=== PATIENT | female | born 1960 | race Caucasian/White ===

== ENCOUNTER 2019-02-07 22:24 | Observation (INO) | payer OTHER, SELFPAY ==
[2019-02-07] VITALS (9 sets, daily range): BP systolic 109–154; BP diastolic 57–79; PULSE 72–88; RESP 14–20; TEMP 36.8; O2SAT 93–100; BMI 34.4
--- NOTE | 2019-02-07 22:28 | ED.LOWEXIN ---
HPI - Extremity Injury (Lower) General Chief Complaint: Extremity Injury, Lower Stated Complaint: severe dislocate/broke lt ankle-sprained rt ankle Time Seen by Provider: 02/07/19 22:27 Source: patient and family Mode of arrival: ambulatory Limitations: no limitations History of Present Illness HPI Narrative: 58-year-old female nonsmoker with benign medical history presents with her in the chief complaint of a left ankle injury suffered earlier today. The patient was walking down some steps and lost her balance and fell, obviously severely injuring her left ankle. She has significant pain with ambulation and some improvement with rest. She denies any numbness or tingling. She does have a little bit of pain in her right ankle as well. She denies head neck or back pain. She denies any prodromal were contributing symptoms to the fall. She does not take blood thinners. She was seen and evaluated by the paramedics whom wrap her ankle in a pillow and suggested she come see us. She is visiting from [place] where she lives MD complaint: ankle injury Type of Injury: unknown Place: street/outdoors Severity: moderate Relieving factors: immobilization Exacerbating factors: weight bearing, movement and palpation Context: fall Associated symptoms: snap/pop sensation, swelling and unable to bear weight Other symptoms: none Related Data Home Medications Medication Instructions Recorded Confirmed No Known Home Medications 02/07/19 02/08/19 Allergies Allergy/AdvReac Type Severity Reaction Status Date / Time morphine Allergy Verified 02/07/19 22:33 Review of Systems Constitutional Constitutional: Denies chills, Denies fatigue, Denies fever(s), Denies frequent falls, Denies lethargy and Denies weakness Eyes Eyes: Denies change in vision, Denies eye discharge, Denies irritation and Denies loss of vision ENT Ears, Nose, Mouth, and Throat: Denies change in voice, Denies dizziness, Denies neck pain, Denies sore throat and Denies throat swelling Cardiovascular Cardiovascular: Denies chest pain, Denies irregular heart rhythm, Denies lightheadedness, Denies palpitations, Denies dyspnea, Denies dyspnea on exertion and Denies orthopnea Respiratory Respiratory: Denies cough, Denies dyspnea, Denies dyspnea on exertion and Denies wheezing Gastrointestinal Gastrointestinal: Denies abdominal pain, Denies change in bowel habits, Denies diarrhea, Denies nausea and Denies vomiting Genitourinary Genitourinary: Denies hematuria, Denies flank pain, Denies urinary incontinence and Denies urinary urgency Musculoskeletal Musculoskeletal: Denies back pain, Reports joint swelling, Reports limited range of motion, Denies muscle weakness, Denies neck pain, Denies numbness and Denies tingling Integumentary/Breasts Skin/Breast: Denies pruritus, Denies erythema, Denies rash and Denies wounds Neurologic Neurologic: Denies behavioral changes, Denies confusion, Denies dizziness, Denies frequent falls, Denies loss of vision, Denies numbness, Denies tingling and Denies weakness Psychiatric Psychiatric: Denies anxiety, Denies behavioral changes, Denies confusion, Denies depression, Denies homicidal ideation and Denies suicidal ideation Endocrine Endocrine: Denies fatigue, Denies flushing and Denies palpitations Hematologic/Lymphatic Hematologic/Lymphatic: Denies easy bruising Allergic/Immunologic Allergic/Immunologic: Denies urticaria, Denies throat swelling and Denies wheezing [facility] Social History household members: spouse Smoking Status: Never smoker alcohol intake: never Social History household members: spouse Smoking Status: Never smoker alcohol intake: never Exam Narrative Exam Narrative: GENERAL: [58] year old patient appears stated age. Well-nourished, well-developed patient, in mild distress. HEAD: Atraumatic. Normocephalic. EYES: Pupils equal round and reactive. Extraocular motions intact. No scleral icterus. No injection or drainage. ENT: Nose without bleeding, purulent drainage. Throat without erythema, tonsillar hypertrophy or exudate. Airway patent. NECK: Trachea midline. Non tender CARDIOVASCULAR: Regular rate and rhythm without murmurs, gallops, or rubs. RESPIRATORY: Clear to auscultation. Breath sounds equal bilaterally. No wheezes, rales, or rhonchi. GASTROINTESTINAL: Abdomen soft, non-tender, nondistended. EXTREMITIES: Obvious swelling and deformity of the left ankle, difficulty in palpating dorsalis pedis but easily seen on bedside ultrasound with color Doppler. Sensation intact. Patient has full painless range of motion of the knee. Patient has some pain to palpation of the lateral malleolus on the right ankle. These injuries are closed and neurovascularly intact. BACK: Nontender without deformity or crepitance. No flank tenderness. NEURO: AOx3. SKIN: No rash or erythema of visible areas Initial Vital Signs Initial Vital Signs: Vital Signs Temperature 98.2 F 02/07/19 22:37 Pulse Rate 88 02/07/19 22:37 Respiratory Rate 20 02/07/19 22:37 Blood Pressure 154/69 H 02/07/19 22:37 Pulse Oximetry 100 02/07/19 22:37 Procedures Orthopedic Fracture Reduction Fracture #1: Time Out Performed: Yes Side: left Fracture Reduction Location: tibia Analgesia: procedural sedation Technique: direct manipulation Post Reduction X-rays Demonstrate: anatomical reduction Post-reduction neuro exam: intact Post-reduction vascular exam: intact Splint Applied: Yes Patient Tolerated Procedure: Well Orthopedic Splinting/Casting Injury #1: Side: left Lower Extremity Injury Location: ankle Lower Extremity Immobilizer: posterior splint and stirrup splint Post splinting neuro exam: intact Post splinting vascular exam: intact Placed by: Provider Procedural Sedation Patient Age: Patient is 5yrs or older Consent signed: Yes Time out performed: Yes Indication: fracture/dislocation reduction ASA Class: I Mallampati Airway Classification: Class II Preparation: raw stock machine loader applied, pulse oximeter, capnometry used, supplemental O2 applied, suction/airway equipment at bedside and IV secured IV Propofol dose (mg): 100 ED Sedation Level: Moderate (Concious) Patient Tolerated Procedure: Well Complications: none Course Orders Ordered: ED Orders 02/07/19 23:17 XR ankle LT 2V Stat 02/07/19 23:55 CT LE LT wo con Stat Hydromorphone HCl (Dilaudid) 0.5 mg IV Q2H PRN PRN Reason: Pain, Severe (7-10) Last Admin: 02/08/19 06:39 Dose: 0.5 mg Documented by: Admin: 02/08/19 04:38 Dose: 0.5 mg Documented by: Admin: 02/08/19 02:32 Dose: 0.5 mg Documented by: YESSY Hydroxyzine Pamoate (Vistaril) 25 mg PO Q6HR PRN PRN Reason: Nausea Last Admin: 02/08/19 03:32 Dose: 25 mg Documented by: YESSY Sodium Chloride (Normal Saline 0.9%) 1,000 mls @ 125 mls/hr IV CONT GILDA Last Admin: 02/08/19 02:31 Dose: 125 mls/hr Documented by: YESSY Ondansetron HCl (Zofran) 4 mg IV Q4HR PRN PRN Reason: Nausea And Vomiting Sodium Chloride (Normal Saline 0.9% Flush) 10 ml IV PRN PRN PRN Reason: Flush Last Admin: 02/08/19 06:39 Dose: 10 ml Documented by: Admin: 02/08/19 04:39 Dose: 10 ml Documented by: YESSY Discontinued Medications Sodium Chloride (Normal Saline 0.9%) 1,000 mls @ 1,000 mls/hr IV BOLUS ONE Stop: 02/08/19 00:59 Last Infusion: 02/08/19 00:20 Dose: 0 mls/hr Documented by: Admin: 02/08/19 00:02 Dose: 1,000 mls/hr Documented by: LC Ketorolac Tromethamine (Toradol) 15 mg IV NOW ONE Stop: 02/08/19 03:19 Last Admin: 02/08/19 03:29 Dose: 15 mg Documented by: YESSY Propofol (Diprivan) 200 mg IV NOW ONE Stop: 02/07/19 23:20 Last Admin: 02/07/19 23:43 Dose: 100 mg Documented by: DELFINO Consultations Consultation #1: Discussed with on-call orthopedics whom are happy with postreduction films and will admit patient and take to the operating room tomorrow morning Vital Signs Vital signs: Vital Signs - 8 hr 02/08/19 00:17 02/08/19 01:00 Temperature 97.7 F Pulse Rate 81 71 Respiratory Rate 17 16 Blood Pressure 136/82 133/76 Pulse Oximetry 96 98 MDM - Extremity Injury (Lower) Lab Data Result diagrams: 02/07/19 23:05 02/07/19 23:05 Labs: Lab Results 02/07/19 02/07/19 Range/Units 23:05 23:05 WBC 14.9 H (4.5-11.0) X10^3/uL RBC 4.37 (4.0-5.2) X10^6/uL Hgb 13.0 (12.0-16.0) g/dL Hct 38.4 (36-46) % MCV 87.7 (80-100) fL MCH 29.6 (26-34) PG MCHC 33.8 (30-36) % RDW 12.9 (11.6-14.8) % Plt Count 194 (150-400) X10^3/uL Neut % (Auto) 78.1 H (50-75) % Lymph % (Auto) 11.5 L (25-40) % [place] % (Auto) 6.1 (3-14) % Eos % (Auto) 3.0 (2-4) % Baso % (Auto) 1.3 (0-2) % Neut # (Auto) 02833 H (3371-3031) /uL Lymph # (Auto) 1700 (4232-4638) /uL [place] # (Auto) 900 (0-900) /uL Eos # (Auto) 400 (0-450) /uL Baso # (Auto) 200 H (0-100) /uL Sodium 140 (137-145) mmol/L Potassium 3.8 (3.4-5.1) mmol/L Chloride 106 (98-107) mmol/L Carbon Dioxide 24 (22-32) mmol/L BUN 20 H (7-17) mg/dL Creatinine 0.60 (0.52-1.04) mg/dL Estimated GFR > 60.0 (>60) mL/min BUN/Creatinine Ratio 33.3 H (6-22) Glucose 108 H (70-100) mg/dL Calcium 9.5 (8.4-10.2) mg/dL Point of Care Testing Test Results Not applicable Imaging Data Ankle x-ray: My impression: Left ankle notes fracture dislocation Discharge Plan Departure Patient Disposition: Admitted As Inpatient Clinical Impression: Bimalleolar ankle fracture Qualifiers: Encounter type: initial encounter Fracture type: closed Laterality: left Qualified Code(s): S82.842A - Displaced bimalleolar fracture of left lower leg, initial encounter for closed fracture Discharge Date/Time: 02/08/19 01:00 Admit Date/Time: 02/08/19 01:48 Admit Provider: Orly Luciano
--- NOTE | 2019-02-07 22:30 | DI.RAD.S_ITS ---
PROCEDURE: XR ANKLE LT MIN 3V INDICATIONS: pain, swelling TECHNIQUE: 3 views of the ankle were acquired. COMPARISON: [facility], CT, CT LE LT WO CON, 02/08/2019, 0:43. [facility], CR, XR ANKLE LT 2V, 02/07/2019, 23:23. FINDINGS: Bones: There is a comminuted fracture identified involving the distal left fibular shaft with mild lateral displacement of the distal fracture fragment. A vertically oriented fracture along the posterior margin of the distal tibial metaphysis involves the articular surface compatible with a posterior malleolar fracture. There is superior displacement of the fracture fragment and the adjacent articular surface by 5 mm. Anterior widening of the tibiotalar joint space and the medial clear space is present. There is borderline widening of the distal tibiofibular syndesmosis. No suspicious osseous lesions or dislocations are evident. Soft tissues: There is a prominent tibiotalar joint effusion. Prominent soft tissue swelling about the ankle is present. IMPRESSION: 1. Comminuted distal fibular shaft fracture. 2. Posterior malleolus fracture. 3. Probable disruption of the syndesmosis. 4. Widening of the medial clear space suggests a deltoid ligament injury. 5. Ankle effusion. Dictated by: Catalino Conley M.D. on 02/08/2019 at 7:11 Approved by: Catalino Conley M.D. on 02/08/2019 at 7:14
--- NOTE | 2019-02-07 22:30 | DI.RAD.S_ITS ---
PROCEDURE: XR KNEE LT 1TO2V INDICATIONS: pain after fall TECHNIQUE: 2 views of the knee were acquired. COMPARISON: None. FINDINGS: Bones: No displaced fractures or dislocations. No suspicious bony lesions. Small developing marginal osteophytes along the articular surface of the patella is present. Soft tissues: No joint effusion. No suspicious soft tissue calcifications. IMPRESSION: No acute left knee fractures. Dictated by: Catalino Conley M.D. on 02/08/2019 at 7:10 Approved by: Catalino Conley M.D. on 02/08/2019 at 7:11
--- NOTE | 2019-02-07 22:35 | DI.RAD.S_ITS ---
PROCEDURE: XR ANKLE RT MIN 3V INDICATIONS: pain, fall TECHNIQUE: 3 views of the ankle were acquired. COMPARISON: None. FINDINGS: Bones: No displaced fractures or dislocations. Ankle mortise is normally aligned. No suspicious bony lesions. There is a small plantar calcaneal spur. Soft tissues: There may be a small tibiotalar joint effusion. Soft tissue swelling overlying the lateral malleolus is present. IMPRESSION: No displaced right ankle fractures are evident. Dictated by: Catalino Conley M.D. on 02/08/2019 at 7:09 Approved by: Catalino Conley M.D. on 02/08/2019 at 7:10
--- NOTE | 2019-02-07 22:42 | PC.NURSE ---
left DP pulse found with doppler. Pt arrived POV from [place] where medics stabilized ankle with a pillow and tape. Pt states she was stepping off a deck joist onto stairs with right foot and slipped causing injury to her left ankle. She also has pain in right ankle. Able to transfer self with minimum assistance from wheelchair to stretcher. Provider notified of right ankle pain. xrays ordered.
[2019-02-07 23:14] LABS: Add Manual Diff / Slide Review NO; Basophils Absolute Auto 200 /uL (0-100); Basophils Percent Auto 1.3 % (0-2); Eosinophils Absolute Auto 400 /uL (0-450); Hematocrit 38.4 % (36-46); Lymphocytes Absolute Auto 1700 /uL (1100-4500); Lymphocytes Percent Auto 11.5 % (25-40); Mean Corpuscular HGB Conc 33.8 % (30-36); Mean Corpuscular Hemoglobin 29.6 PG (26-34); Mean Corpuscular Volume 87.7 fL (80-100); Monocytes Absolute Auto 900 /uL (0-900); Monocytes Percent Auto 6.1 % (3-14); Neutrophils Absolute Auto 11600 /uL (1500-7000); Neutrophils Percent Auto 78.1 % (50-75); Platelet Count 194 X10^3/uL (150-400); Red Blood Cell Count 4.37 X10^6/uL (4.0-5.2); Red Cell Distribution Width 12.9 % (11.6-14.8); White Blood Cell Count 14.9 X10^3/uL (4.5-11.0)
--- NOTE | 2019-02-07 23:17 | DI.RAD.S_ITS ---
PROCEDURE: XR ANKLE LT 2V INDICATIONS: Post reduction films TECHNIQUE: 2 views of the ankle were acquired. COMPARISON: [facility], CT, CT LE LT WO CON, 02/08/2019, 0:43. [facility], CR, XR ANKLE LT MIN 3V, 02/07/2019, 22:34. FINDINGS: Interval closed reduction and placement of a splint overlying the ankle has occurred. The ankle mortise alignment is significantly improved on the current study. The fractures of the distal fibula and distal tibia are also improved in alignment. No new fractures are identified. No dislocations or suspicious osseous lesions are identified. There continues to be a joint effusion and soft tissue swelling. IMPRESSION: Near-anatomic alignment of the distal tibia and fibula fractures, status post closed reduction. Dictated by: Catalino Conley M.D. on 02/08/2019 at 7:14 Approved by: Catalino Conley M.D. on 02/08/2019 at 7:16
[2019-02-07 23:26] LABS: BUN Creatinine Ratio 33.3 (6-22); Blood Urea Nitrogen 20 mg/dL (7-17); Calcium 9.5 mg/dL (8.4-10.2); Carbon Dioxide 24 mmol/L (22-32); Chloride 106 mmol/L (98-107); Estimated Glomerular Filt Rate > 60.0 mL/min (>60); Glucose 108 mg/dL (70-100); HEMOLYSIS < 15 (0-50); Potassium 3.8 mmol/L (3.4-5.1); Sodium 140 mmol/L (137-145)
--- NOTE | 2019-02-07 23:42 | PC.NURSE ---
Pt states that her normal bp is 120/80.
[2019-02-07] MEDS: PROPOFOL 200 MG/20 ML VIAL IV (23:43)
--- NOTE | 2019-02-07 23:53 | PC.NURSE ---
posterior with stirup ortho glass splint
--- NOTE | 2019-02-07 23:55 | DI.CT.S_ITS ---
PROCEDURE: CT LE LT W CON INDICATIONS: fracture s/p reduction, per ortho request TECHNIQUE: Noncontrast 1-1.5 mm axial sections acquired from above the tibiotalar joint to the bottom of the calcaneus, with coronal and sagittal reformats. COMPARISON: [facility], CR, XR ANKLE LT 2V, 02/07/2019, 23:23. FINDINGS: Image quality: Diagnostic. Bones: There is a comminuted fracture involving the distal shaft of the fibula. The distal fracture fragments are near anatomic in alignment. There is a vertical fracture evident involving the posterior aspect of the distal tibial metaphysis that extends into the articular surface. There are 4 mm of posterior displacement and 3 mm of superior articular surface displacement of the fracture fragment. This fracture is noted to extend into the posterior aspect of the medial malleolus. There also is a small avulsion fracture along the anterior aspect of the medial malleolus. No significant widening of the distal tibiofibular syndesmosis is evident on this exam. The alignment of the ankle mortise is within normal limits. No additional fractures are present. There is no dislocation. No suspicious osseous lesions are identified. Soft tissues: Prominent soft tissue swelling about the ankle is present. There is an ankle effusion. No significant atrophy of the imaged muscles is evident. Please note that the ligamentous, tendinous, and cartilaginous structures of the ankle are not adequately evaluated on CT. No soft tissue masses are appreciated. IMPRESSION: Trimalleolar left ankle fracture is in near-anatomic alignment. There continues to be slight articular surface offset of the posterior malleolar fracture fragment. Note: The preliminary report provided by [facility] is concordant with the final report. Dictated by: Catalino Conley M.D. on 02/08/2019 at 7:26 Approved by: Catalino Conley M.D. on 02/08/2019 at 7:30
[2019-02-08] VITALS: BP 136/80; PULSE 75; RESP 14; O2SAT 100
[2019-02-08] MEDS: SODIUM CHLORIDE 0.9% 1,000 ML 1000 ML IV (00:02)
--- NOTE | 2019-02-08 00:07 | PC.NURSE ---
procedural sedation ended. No complications. Tolerated well. pt staying in ED waiting for acute care bed. Leg elevated. Pain tolerable. Pt spouse at bedside.
[2019-02-08 00:17] VITALS: BP 136/82; PULSE 81; RESP 17; O2SAT 96
--- NOTE | 2019-02-08 00:19 | PC.NURSE ---
Pt has pt belongings.
[2019-02-08 01:00] VITALS: BP 133/76; PULSE 71; RESP 16; TEMP 36.5; O2SAT 98
[2019-02-08 01:59] VITALS: BMI 34.4
[2019-02-08] MEDS: SODIUM CHLORIDE 0.9% 1,000 ML 125 ML IV (02:31)
[2019-02-08] MEDS: HYDROMORPHONE 0.5 MG INJ IV ×4 (02:32→08:32)
--- NOTE | 2019-02-08 02:49 | PC.ADMIT ---
Addendum entered by Rachid Costa R.N. 02/08/19 04:01: Pt was NPO after 1830. Called Dr. Luciano at 0315 to report pain control issues. Pt reported 9/[address] Luciano ordered now dose of toradol 15mg and 25mg of vistaril. pt had small sip of water for vistaril. Pt still complains of 7/10 pain level. Original Note: Safe hand off from Luis SWEENEY. Pt arrived from the ED at 0100 on a stretcher and pivoted to bedside. Pt is in pain 7/10 left ankle, VSS. Right ankle is swollen and bruised from fall. Pt placed as a high fall risk since she fell before being brought in. Pt is on 0.5 mg dilaudid Q2. She is able to pivot on rgt foot to bedside commode. Pt has no home medications. Pt was educated on the use of call light and it is within reach. Bedside is low and locked. [address] Admission Note: The patient,Amadou Gimenez,58 y/o, was given written information regarding hospital policies, unit procedures and contact persons. Patient's smoking status: Never smoker. Vital Signs - 8 hr 02/07/19 22:37 02/07/19 23:20 02/07/19 23:25 Temperature 98.2 F Pulse Rate 88 84 78 Respiratory Rate 20 20 16 Blood Pressure 154/69 H Blood Pressure [Left Arm] 141/79 H 139/66 Pulse Oximetry 100 99 96 02/07/19 23:30 02/07/19 23:35 02/07/19 23:40 Temperature Pulse Rate 82 78 72 Respiratory Rate 16 18 16 Blood Pressure Blood Pressure [Left Arm] 112/62 109/57 L 110/64 Pulse Oximetry 93 94 98 02/07/19 23:45 02/07/19 23:50 02/07/19 23:55 Temperature Pulse Rate 79 72 72 Respiratory Rate 20 18 16 Blood Pressure Blood Pressure [Left Arm] 122/70 121/66 129/70 Pulse Oximetry 98 98 99 02/08/19 00:00 02/08/19 00:17 02/08/19 01:00 Temperature 97.7 F Pulse Rate 75 81 71 Respiratory Rate 14 17 16 Blood Pressure 136/82 133/76 Blood Pressure [Left Arm] 136/80 Pulse Oximetry 100 96 98
[2019-02-08] MEDS: KETOROLAC 15 MG/ML VIAL IV (03:29)
[2019-02-08] MEDS: hydrOXYzine pamoate 25 MG CAPSULE PO ×2 (03:32→15:46)
[2019-02-08] MEDS: SODIUM CHLORIDE 0.9% FLUSH 10 ML IV ×2 (04:39→06:39)
[2019-02-08 04:41] VITALS: BP 101/58; PULSE 63; RESP 15; TEMP 36.7; O2SAT 95
[2019-02-08 07:55] VITALS: BP 95/61; PULSE 66; RESP 14; TEMP 36.3; O2SAT 95
--- NOTE | 2019-02-08 09:38 | PC.NURSE ---
Addendum entered by Svitlana Vences R.N. 02/08/19 15:37: pt given oxycodone around 1400. Helpful with pain. Worked with physical therapy and did well. Pt is a pivot on her good leg. Unhappy about taking so long to get out of here, as they are driving to [facility]. Pt had to get all paperwork and CD of cat scan to room. Will be leaving shortly. Original Note: Pt given 0.5mg of iv dilaudid and somewhat helpful. She is waiting for Dr. Luciano to come and see her regarding her surgery today. Leg with splint in place. PP strong and positive to extremity. in room.
[2019-02-08 11:15] VITALS: BP 103/63; PULSE 85; RESP 16; TEMP 36.7; O2SAT 97
--- NOTE | 2019-02-08 11:18 | P.HP_ITS ---
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 She has visiting friends in [place] [facility] in their work truck where they are helping their friends remodel their cabin and place a deck and she notes that she twisted 1st her right ankle and then fell and severely injured her left ankle. She noted the acute onset of severe left ankle pain and gross deformity. They borrowed a friend's car because she could not get into her 's work truck and she came to [facility] for evaluation via private vehicle with a grossly displaced fracture dislocation of her left ankle. Unfortunately the car broke down on the [place]. She notes significant left ankle pain swelling and numbness. Patient History Social History household members: spouse Smoking Status: Never smoker alcohol intake: never Family & Social History Social History: household members spouse Prior Living Arrangements House Safety & Behavioral: Feels Safe in Current Yes Environment Been Physically Hurt or No Threatened By a Person Suicidal Ideation Description None Suicide Plan Description No Plan Tobacco & Substance use: Smoking Status Never smoker alcohol intake never alcohol intake frequency 0-2 drinks per day Substance Use Type does not use Meds Home Medications and Allergies Home Medications Medication Instructions Recorded Confirmed Type No Known Home Medications 02/07/19 02/08/19 History Allergies Allergy/AdvReac Type Severity Reaction Status Date / Time morphine Allergy Verified 02/07/19 22:33 Review of Systems Review of Systems Narrative: Chronic GI problems with multiple GI surgeries, some probable chronic problems with sinuses, Exam Vital Signs (past 8 hours): - 02/08/19 04:41 02/08/19 07:55 Temperature 98.0 F 97.3 F L Pulse Rate 63 66 Respiratory Rate 15 14 Blood Pressure 101/58 L 95/61 Pulse Oximetry 95 95 Oxygen Delivery Method Room Air Oxygen Flow Rate 0 Narrative Exam Narrative: HEENT benign, lungs clear, cor regular rate and rhythm, abdomen soft and benign, HEENT is supple, right ankle shows some mild swelling and mild tenderness but minimal pain with range of motion, her left lower extremity she has a splint in place we did I did unwrap the splint in order to increase her circulation and she noted some Deak decreased pain and improved motion she is a ble to fire toe flexors and extensors with trace motion has adequate capillary refill and her toes are warm. Objective Labs Result Diagrams: 02/07/19 23:05 02/07/19 23:05 Labs: Laboratory Results - last 24 hr 02/07/19 02/07/19 23:05 23:05 WBC 14.9 H RBC 4.37 Hgb 13.0 Hct 38.4 MCV 87.7 MCH 29.6 MCHC 33.8 RDW 12.9 Plt Count 194 Neut % (Auto) 78.1 H Lymph % (Auto) 11.5 L [place] % (Auto) 6.1 Eos % (Auto) 3.0 Baso % (Auto) 1.3 Neut # (Auto) 52656 H Lymph # (Auto) 1700 [place] # (Auto) 900 Eos # (Auto) 400 Baso # (Auto) 200 H Sodium 140 Potassium 3.8 Chloride 106 Carbon Dioxide 24 BUN 20 H Creatinine 0.60 Estimated GFR > 60.0 BUN/Creatinine Ratio 33.3 H Glucose 108 H Calcium 9.5 her x-rays show a grossly displaced left ankle fracture with a severely comminuted fibula and combination of the medial malleolar but also significant posterior tibial fracture with gross displacement. There are post reduction films that show acceptable overall alignment of the ankle. There is a CT scan that shows comminuted distal fibula fracture and a comminuted and residually displaced distal tibia fracture with acceptable tibiotalar alignment but not anatomic. Assessment & Plan Assessment & Plan narrative: Impression is comminuted left fibula fracture and comminuted left displaced and grossly unstable distal tibial fracture with some medial malleolar extension intra-articular. Recommendations and plan we had an extensive discussion today. She needed to be admitted overnight for additional stabilization as she had a reduction in the emergency room and was having severe problems with swelling and pain over night. I told her that it is reasonable to fix her left ankle on a somewhat more elective basis sometime later this week or next week. She lives in [facility] and I think it is in her best interest to have it fixed by an orthopedic surgeon who can then fall her up postoperatively. We discussed the possibility of placing her in an external fixator in the short term for management of her fracture but she does appear to be stable in a splint and I think that as long as she keeps it adequately elevat ed she likely will be stable in the splint and can have more definitive fixation done within the next 1-2 weeks as long as she does not have significant swelling or skin breakdown concerns. Quality VTE Deep Vein Thrombosis/Pulmonary Embolism Present on Admission: No
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
[2019-02-08] MEDS: OXYCODONE IR 5 MG TABLET PO (14:37)
--- NOTE | 2019-02-08 16:09 | PC.NURSE ---
patient was medicated with a Vistaril per MAR orders prior to leaving, D/C teaching was done with spouse and patient, prescriptions were given to spouse in room. Copies made of RX's and placed in patients chart. Paperwork for a release of records placed in chart and CD of imaging done at was given to patient. Patient states understanding of teaching. Ice packs provided for long road trip as well as water bottle filled, patient was advised to fill prescriptions prior to leaving [facility] and education was done regarding elevation of affected extremity and making sure to move often during long trip home. Patient was escorted down to personal vehicle and was met by spouse. Patient left in stable condition, ambulated with FWW to care by pivot motion on own w/ little assistance.
== END 2019-02-08 16:00 | disposition home or self-care (01) ==
LOC: ED 23:47 → AC 02-08 02:07
PROVIDERS: Admitting Provider Orthopaedic Surgery; Emergency Provider Emergency Medicine; Visit Provider Orthopaedic Surgery
DX: S82.842A Displaced bimalleolar fracture of left lower leg, initial encounter for closed fracture (principal); M25.572 Pain in left ankle and joints of left foot; W10.9XXA Fall (on) (from) unspecified stairs and steps, initial encounter
CPT/HCPCS: 27752; 36591; 73560; 73600; 73610; 73700; 80048; 85025; 94770; 96361; 96374; 96375; 96376; 97161; 99152; 99284; 99285; G0378; J1170; J1885; J2704